=== PATIENT | female | born 1995 | race Caucasian/White ===

== ENCOUNTER 2016-10-21 18:39 | Emergency (ER) | payer OTHER ==
[~2016-10-21] VITALS: Ht 152.4 cm; Wt 77.2 kg
[~2016-10-21 18:39] MED LIST: Feosol PO; Levothroid,Synthroid PO; Motrin PO; NO HOME MEDS; NOHOMEMEDS; Percocet 5/325,Endoc PO
[2016-10-21 22:39] VITALS: BP 136/95
== END 2016-10-21 22:39 | disposition home or self-care (01) ==
LOC: EME 18:39
DX: S93.402A Sprain of unspecified ligament of left ankle, initial encounter (principal); X50.1XXA Overexertion from prolonged static or awkward postures, initial encounter
CPT/HCPCS: 73610; 73630; 99281; 99283

== ENCOUNTER 2018-02-20 12:59 | Emergency (ER) | payer OTHER ==
[~2018-02-20] VITALS: Ht 152.4 cm; Wt 66.6 kg
[~2018-02-20 12:59] MED LIST changes: +FLEXERIL10 MG PO; +MOTRIN600 MG PO; +MOTRIN800 MG PO; +ROBAXIN500 MG PO
[2018-02-20 13:49] LABS: HEMATOCRIT 36.9 % (36.0-46.0); HEMOGLOBIN 12.2 G/DL (11.9-15.5); MCH 28.2 PG (29.0-34.0); MCHC 33.1 G/DL (30.0-36.0); MCV 85.4 FL (83-99); PLATELET COUNT 363 K/uL (156-360); RBC DIS.WIDTH-CV 13.2 % (11.8-14.6); RBC DIS.WIDTH-SD 42.2 % (39-53); RED BLOOD COUNT 4.32 M/uL (3.80-5.20); WHITE BLOOD COUNT 6.6 K/uL (4.1-10.2)
[2018-02-20 13:52] LABS: APPEARANCE CLEAR ((CLEAR)); BILIRUBIN NEGATIVE; BLOOD SMALL; COLOR YELLOW ((YELLOW)); GLUCOSE (STRIP) NEGATIVE; KETONES NEGATIVE; LEUKOCYTES SMALL; NITRITE NEGATIVE; PROTEIN (STRIP) NEGATIVE; SPECIFIC GRAVITY 1.025 (1.000-1.030); UROBILINOGEN 0.2 MG/DL (0.2-1.0)
[2018-02-20 14:14] LABS: BACTERIA NONE SEEN /HPF; EPITHELIAL CELLS 1+ /HPF; MUCUS TRACE /LPF; RED BLOOD CELLS 0-5 /HPF (0-5); UCUL ADDED? YES
[2018-02-20 14:18] LABS: ALBUMIN 4.2 g/dL (3.2-4.8); CHLORIDE 105 mEq/L (99-109); POTASSIUM 4.3 mEq/L (3.7-5.4); SODIUM 139 mEq/L (136-147)
[2018-02-20 14:20] LABS: GLUCOSE 84 mg/dL (70-99); TOTAL PROTEIN 7.8 g/dL (6.4-8.3)
[2018-02-20 14:22] LABS: TOTAL BILIRUBIN 0.7 mg/dL (0.0-1.0)
[2018-02-20 14:24] LABS: ALKALINE PHOSPHATASE 51 IU/L (3-129); CREATININE 0.8 mg/dL (0.6-1.3); GFR ESTIMATE (CALCULATED) > 59 mL/min/
[2018-02-20 14:25] LABS: UREA NITROGEN (BUN) 12 mg/dL (9-23)
[2018-02-20 14:26] LABS: AST (GOT) 10 IU/L (2-34)
[2018-02-20 14:27] LABS: ALT (GPT) 6 IU/L (3-49)
[2018-02-20 14:37] LABS: QUANTITATIVE HCG < 4.0 MIU/ML
[2018-02-20] MEDS ORDERED: CIPRO500 MG PO (16:32)
[2018-02-20] MEDS ORDERED: FLAGYL500 MG PO (16:32)
[2018-02-20 16:44] VITALS: BP 107/77
== END 2018-02-20 15:10 | disposition home or self-care (01) ==
LOC: EME 12:59
DX: K52.9 Noninfective gastroenteritis and colitis, unspecified (principal); K92.9 Disease of digestive system, unspecified; Z79.891 Long term (current) use of opiate analgesic
CPT/HCPCS: 74177; 80053; 81003; 84702; 85027; 87086; 99281; 99284; J2405; J7030